=== PATIENT | female | born 1965 | race Caucasian/White ===

== ENCOUNTER 2020-04-21 13:18 | Inpatient (IN) | payer MEDICAID, OTHER ==
[~2020-04-21] VITALS: Ht 157.5 cm; Wt 79.8 kg
[2020-04-21] MEDS ORDERED: IBUPROFEN 600MG TABLET PO ONE (14:00)
[2020-04-21] MEDS ORDERED: IBUP-2029 MT (14:43)
[2020-04-21 15:26] LABS: CLARITY URINE CLEAR (CLEAR); COLOR URINE YELLOW (YELLOW); KETONES URINE NEGATIVE (NEGATIVE); LEUKOCYTE ESTERASE URINE NEGATIVE (NEGATIVE); NITRITE URINE NEGATIVE (NEGATIVE); OCCULT BLOOD URINE NEGATIVE (NEGATIVE); PH URINE 5.5 (4.5-8.0); PROTEIN URINE NEGATIVE (NEGATIVE); SPECIFIC GRAVITY URINE 1.031 (1.005-1.030); UROBILINOGEN URINE 0.2 E.U./dL (0.2-1.0)
[2020-04-21 17:04] LABS: BASOPHILS % 0.7 % (0.0-2.0); EOSINOPHILS % 0.3 % (0.0-5.0); HEMATOCRIT. 41.8 % (36.0-48.0); HEMOGLOBIN. 13.9 g/dL (12.0-16.0); LYMPHOCYTES % 20.7 % (20.0-50.0); MEAN CORPUSCULAR HEMOGLOBIN 28.9 pg (28.0-32.0); MEAN PLATELET VOLUME 8.6 fl (7.4-10.4); MONOCYTES % 8.1 % (2.0-8.0); NEUTROPHILS % 70.2 % (40.0-76.0); PLATELET 356 x1000/uL (130-400); RED CELL DISTRIBUTION WIDTH 12.5 % (11.6-14.6)
[2020-04-21 17:11] LABS: CHLORIDE 99 mEq/L (98-107); INR 0.9
[2020-04-21] MEDS ORDERED: MORPHINE SULFATE 2 MG/ML CPJ (NOT FOR IM USE) IV PRN (20:45)
[2020-04-21] MEDS ORDERED: NICARDIPINE 100 MG in SODIUM CHLORIDE 0.9% 60 ML IV PRN (20:45)
[2020-04-22] VITALS (47 sets, daily range): BP systolic 101–162; BP diastolic 35–104
[2020-04-22] MEDS ORDERED: ONDANSETRON HCL 4MG/2ML INJ IV PRN (09:15)
[2020-04-22] MEDS ORDERED: DEXTROSE 50% WATER 50ML SYRINGE IV PRN (09:15)
[2020-04-22] MEDS ORDERED: ACETAMINOPHEN 325MG TABLET PO PRN (09:15)
[2020-04-22] MEDS ORDERED: BLOOD SUGAR DIAGNOSTIC STRIP TEST SCH (12:30)
[2020-04-22] MEDS ORDERED: INSULIN LISPRO 100 UNITS/ML SUBCUT SCH (13:00)
== END 2020-04-22 16:00 | disposition home or self-care (01) | DRG 347 ==
LOC: EDBD → ER 13:18 → 5EST 17:03 → ENRESERV 22:46
PROVIDERS: ADMIT Internal Medicine; ATTEND Internal Medicine
DX: M54.9 Dorsalgia, unspecified (principal); D72.829 Elevated white blood cell count, unspecified; E11.9 Type 2 diabetes mellitus without complications; E66.9 Obesity, unspecified; E87.1 Hypo-osmolality and hyponatremia; K76.0 Fatty (change of) liver, not elsewhere classified; K57.30 Diverticulosis of large intestine without perforation or abscess without bleeding; M25.511 Pain in right shoulder; M54.6 Pain in thoracic spine; V89.2XXA Person injured in unspecified motor-vehicle accident, traffic, initial encounter; R07.81 Pleurodynia; Y93.89 Activity, other specified; Y99.8 Other external cause status; Y92.410 Unspecified street and highway as the place of occurrence of the external cause; Z90.710 Acquired absence of both cervix and uterus; Z68.32 Body mass index [BMI] 32.0-32.9, adult; Z79.899 Other long term (current) drug therapy; Z71.3 Dietary counseling and surveillance
CPT/HCPCS: 36415; 71045; 72128; 73030; 73130; 74176; 80053; 81003; 82962; 83605; 84484; 85025; 86850; 86900; 97161; 99285; J2270; L0172

== ENCOUNTER 2020-04-29 10:32 | Emergency (ER) | payer MEDICAID ==
[~2020-04-29] VITALS: Ht 157.5 cm; Wt 77.0 kg
[~2020-04-29 10:32] MED LIST: IBUP-2029 MT
[2020-04-29] MEDS ORDERED: SODIUM CHLORIDE 0.9% 1,000 ML IV ONE (11:00)
[2020-04-29] MEDS ORDERED: TETANUS, DIPHTHERIA, PERTUSSIS VAC/PF 0.5ML (>7YR OLD) IM ONE (11:00)
[2020-04-29 11:28] LABS: BASOPHILS % 0.9 % (0.0-2.0); EOSINOPHILS % 2.1 % (0.0-5.0); HEMATOCRIT. 41.2 % (36.0-48.0); HEMOGLOBIN. 13.9 g/dL (12.0-16.0); LYMPHOCYTES % 16.9 % (20.0-50.0); MEAN CORPUSCULAR HEMOGLOBIN 29.7 pg (28.0-32.0); MEAN CORPUSCULAR VOLUME 88.2 fL (81.0-99.0); MEAN PLATELET VOLUME 8.3 fl (7.4-10.4); MONOCYTES % 6.5 % (2.0-8.0); NEUTROPHILS % 73.6 % (40.0-76.0); PLATELET 402 x1000/uL (130-400); RED BLOOD CELL COUNT 4.67 mill/uL (4.2-5.4); RED CELL DISTRIBUTION WIDTH 12.7 % (11.6-14.6)
[2020-04-29 11:35] LABS: CHLORIDE 99 mEq/L (98-107)
[2020-04-29] MEDS ORDERED: KETOROLAC 30MG/ML VIAL IV ONE (11:45)
[2020-04-29] MEDS ORDERED: PIPERACILLIN/TAZ 3.375G PREMIX 50 ML IV ONE (11:45)
[2020-04-29 11:50] LABS: INR 0.9; PARTIAL THROMBOPLASTIN TIME 25.4 sec (23.4-31.0); PROTHROMBIN TIME 9.9 sec (9.6-11.0)
[2020-04-29] MEDS ORDERED: INSULIN REGULAR (HUMULIN R) 300UNITS/3ML VIAL IV ONE (12:15)
[2020-04-29] MEDS ORDERED: DOXY100C42 MT (15:11)
[2020-04-29] MEDS ORDERED: TRAM50TA3 MT (15:11)
[2020-04-29] MEDS ORDERED: AMOX-424 MT (15:11)
[2020-04-29 15:59] VITALS: BP 131/79
== END 2020-04-29 16:04 | disposition home or self-care (01) ==
LOC: EDBD → ER 10:45
DX: L03.011 Cellulitis of right finger (principal); E11.65 Type 2 diabetes mellitus with hyperglycemia; I10 Essential (primary) hypertension; Z79.84 Long term (current) use of oral hypoglycemic drugs
CPT/HCPCS: 29130; 36415; 73140; 80048; 82962; 85025; 85610; 85730; 87070; 87077; 87186; 87205; 90471; 90715; 93005; 96365; 96375; 99285; J1815; J1885; J2543; J7030; Z7610

== ENCOUNTER 2020-05-03 10:36 | Emergency (ER) | payer MEDICAID ==
[~2020-05-03] VITALS: Ht 160 cm; Wt 82.0 kg
[~2020-05-03 10:36] MED LIST changes: +AMOX-424 MT; +DOXY100C42 MT; +TRAM50TA3 MT
[2020-05-03 10:52] VITALS: BP 189/91
[2020-05-03] MEDS ORDERED: BACITRACIN ZINC OINT UDPKT TOP NR (11:45)
== END 2020-05-03 12:26 | disposition home or self-care (01) ==
LOC: EDBD 10:36 → ER 10:36
DX: L03.011 Cellulitis of right finger (principal); E11.9 Type 2 diabetes mellitus without complications; I10 Essential (primary) hypertension; Z48.00 Encounter for change or removal of nonsurgical wound dressing
CPT/HCPCS: 99282; Z7610

== ENCOUNTER 2023-08-27 22:44 | Emergency (ER) | payer MEDICAID, OTHER ==
[~2023-08-27] VITALS: Ht 162.6 cm; Wt 82.0 kg
[~2023-08-27 22:44] MED LIST changes: +DOXY-456 MT; -DOXY100C42 MT
[2023-08-27 23:17] VITALS: TEMP 97.8; O2SAT 98
[2023-08-28] MEDS ORDERED: IBUP-2028 MT (02:21)
[2023-08-28] MEDS ORDERED: LIDO1ADH23 TP (02:21)
[2023-08-28] MEDS ORDERED: METH-653 MT (02:21)
[2023-08-28] MEDS: METHOCARBAMOL 750MG TABLET PO SCH (02:51)
[2023-08-28] MEDS: KETOROLAC 30MG/ML VIAL IM ONE (02:52)
[2023-08-28] MEDS: LIDOCAINE 5% PATCH TOP STA (02:54)
[2023-08-28 03:00] VITALS: BP 136/64; PULSE 79; RESP 17
== END 2023-08-28 03:07 | disposition home or self-care (01) ==
LOC: ER 22:44
DX: M54.2 Cervicalgia (principal); E11.9 Type 2 diabetes mellitus without complications; I10 Essential (primary) hypertension; Z79.899 Other long term (current) drug therapy
CPT/HCPCS: 99283; 72040; 96372; J1885

== ENCOUNTER 2023-09-01 07:47 | Emergency (ER) | payer OTHER ==
[~2023-09-01] VITALS: Ht 160 cm; Wt 83.5 kg
[~2023-09-01 07:47] MED LIST changes: +IBUP-2028 MT; +LIDO1ADH23 TP; +METH-653 MT
[2023-09-01 07:54] VITALS: O2SAT 100
[2023-09-01] MEDS ORDERED: IBUP-2029 MT (08:25)
[2023-09-01] MEDS ORDERED: METH-653 MT (08:25)
[2023-09-01] MEDS: METHOCARBAMOL 500MG TABLET PO ONE (08:55)
[2023-09-01] MEDS: DIPHENHYDRAMINE 50MG/ML VIAL IM ONE (08:56)
[2023-09-01] MEDS: KETOROLAC 15MG/ML VIAL IM ONE (08:56)
[2023-09-01 09:34] VITALS: BP 153/74; PULSE 80; RESP 18; TEMP 98.4
== END 2023-09-01 09:38 | disposition home or self-care (01) ==
LOC: ER 07:47
DX: S13.4XXA Sprain of ligaments of cervical spine, initial encounter (principal); I10 Essential (primary) hypertension; E11.9 Type 2 diabetes mellitus without complications; X58.XXXA Exposure to other specified factors, initial encounter; Y93.89 Activity, other specified; Y92.89 Other specified places as the place of occurrence of the external cause; Y99.8 Other external cause status
CPT/HCPCS: 81025; 96372; 99284; J1200; J1885; Z7610

== ENCOUNTER 2023-09-06 12:15 | Emergency (ER) | payer OTHER ==
[~2023-09-06] VITALS: Ht 162.6 cm; Wt 81.0 kg
[2023-09-06 12:19] VITALS: O2SAT 99
[2023-09-06 15:45] LABS: BASOPHILS % 0.6 % (0.0-2.0); EOSINOPHILS % 1.5 % (0.0-5.0); HEMATOCRIT. 41.1 % (36.0-48.0); HEMOGLOBIN. 13.6 g/dL (12.0-16.0); LYMPHOCYTES % 22.4 % (20.0-50.0); MEAN CORPUSCULAR HEMOGLOBIN 29.6 pg (28.0-32.0); MEAN CORPUSCULAR HGB CONC 33.2 g/dL (31.0-37.0); MEAN PLATELET VOLUME 8.2 fl (7.4-10.4); NEUTROPHILS % 69.5 % (40.0-76.0); PLATELET 447 x1000/uL (130-400); RED BLOOD CELL COUNT 4.61 mill/uL (4.2-5.4); RED CELL DISTRIBUTION WIDTH 12.4 % (11.6-14.6); WHITE BLOOD COUNT 12.3 x1000/uL (4.5-11.0)
[2023-09-06 15:52] LABS: CHLORIDE 102 mEq/L (98-107); POTASSIUM 4.1 mEq/L (3.5-5.1); SODIUM 137 mEq/L (136-145)
[2023-09-06 15:53] LABS: CALCIUM 9.8 mg/dL (8.7-10.4); CARBON DIOXIDE 28 mEq/L (21-32)
[2023-09-06 15:58] LABS: CREATININE 0.6 mg/dL (0.6-1.0); GLUCOSE 123 mg/dL (70-105); UREA NITROGEN BLOOD 17 mg/dL (9-23)
[2023-09-06] MEDS ORDERED: KETOROLAC 30MG/ML VIAL IV ONE (17:15)
[2023-09-06] MEDS ORDERED: METH-653 MT (17:18)
[2023-09-06] MEDS ORDERED: IOHEXOL-350 100 ML BOTTLE ONE ×2 (17:21→23:07)
[2023-09-06] MEDS: IBUPROFEN 400MG TABLET PO ONE (19:05)
[2023-09-06] MEDS: METHOCARBAMOL 500MG TABLET PO ONE (19:05)
[2023-09-06 19:06] VITALS: BP 150/77; PULSE 90; RESP 20; TEMP 98.3
== END 2023-09-06 19:07 | disposition home or self-care (01) ==
LOC: ER 12:15
DX: M50.30 Other cervical disc degeneration, unspecified cervical region (principal); E11.9 Type 2 diabetes mellitus without complications; I10 Essential (primary) hypertension; Z90.710 Acquired absence of both cervix and uterus; Z79.899 Other long term (current) drug therapy
CPT/HCPCS: 99285; 70496; 80048; 85025; 36415; 70498; 72125; 70450; Q9967